=== PATIENT | male | born 1975 | race Caucasian/White ===

== ENCOUNTER 2024-10-12 06:48 | Day surgery (SDC) | payer OTHER, SELFPAY ==
[2024-10-12 07:00] VITALS: BP 130/88; PULSE 59; RESP 16; TEMP 36.2; O2SAT 96
[2024-10-12 07:22] VITALS: BMI 30.9
[2024-10-12] MEDS: sodium chloride 0.9% 1,000 ML 30 ML IV (07:26)
--- NOTE | 2024-10-12 07:32 | P.HPUD_ITS ---
Surgery/Procedure H&P Update DATE OF PROCEDURE: October 12, 2024 DATE H&P PERFORMED: 10/11/24 H&P UPDATE INFORMATION: I have reviewed H&P completed within last 30 days, I have examined patient prior to procedure, No changes to prior documentation and H&P is in [facility] EMR on date indicated PLANNED PROCEDURE: Operation Date: 10/12/24 08:20 Proposed Procedures p Colonoscopy [id number] G0121 Z12.11(Not Applicable) - Elton Day MD
--- NOTE | 2024-10-12 07:32 | W.PM.OPSUD ---
Surgery/Procedure H&P Update DATE OF PROCEDURE: October 12, 2024 DATE H&P PERFORMED: 10/11/24 H&P UPDATE INFORMATION: I have reviewed H&P completed within last 30 days, I have examined patient prior to procedure, No changes to prior documentation and H&P is in [facility] [place] on date indicated PLANNED PROCEDURE: Operation Date: 10/12/24 08:20 Proposed Procedures p Colonoscopy [id number] G0121 Z12.11(Not Applicable) - Elton Day MD
--- NOTE | 2024-10-12 08:02 | ANES.PREANE2 ---
Pre-Anesthetic Assessment Height/Weight: Height 1.73 m Weight 92.079 kg Preop Diagnosis: screening Operation Date: 10/12/24 08:20 Proposed Procedures p Colonoscopy [id number] G0121 Z12.11(Not Applicable) - Elton Day MD Familial anesthetic complications: none Was Beta Sanam taken within 24 hours: N/A Was Clonidine taken within 24 hours: N/A Last intake: Intake Last Liquid Date 10/11/24 Last Liquid Time 21:00 Last Solid Date 10/10/24 Last Solid Time 16:30 Social Alcohol (drinks beer 2-3x weekly ) and No tobacco Exam alert, oriented x 3 and clear to auscultation bilaterally Airway Mallampati: Class II Dentition: full History/ROS No significant history except as noted Pulmonary None reported CV/HEM None reported None reported Hepatic None reported GI None reported Metabolic None reported Musc/skel None reported Neuropsych None reported Anesthetic Plan ASA status: 1 Anesthesia: Anesthesia Evaluation and MAC Medications/Allergies Home Medications ?Medication ?Instructions ?Recorded ?Confirmed ?Last Taken ?Type glucosamine sulf dipot 1 cap PO BID 10/12/24 10/12/24 Unknown History chlr,msm,chond 550 mg-C 30 mg-lea 1 mg capsule (Glucosamine Chondroitin) multivitamin 1 tab PO DAILY 10/12/24 10/12/24 Unknown History Allergies Allergy/AdvReac Type Severity Reaction Status Date / Time No Known Allergies Allergy Verified 10/12/24 07:14 Current Medications Generic Name Dose Route Start Last Admin Trade Name Freq PRN Reason Stop Dose Admin Sodium Chloride 1,000 mls @ 30 mls/hr 10/12/24 07:15 10/12/24 07:26 Sodium Chloride 0.9% IV 30 mls/hr .Q24H AVA Administration PFSH Anesthesia Family History Father Stroke Mother Cancer Social History Smoking and tobacco/nicotine status: never used tobacco/nicotine Data Anesthesia Cardiac Studies: No Data to Display
[2024-10-12 08:54] VITALS: BP 116/76; PULSE 72; RESP 16; TEMP 36.1; O2SAT 95
[2024-10-12 09:09] VITALS: PULSE 67; RESP 111; O2SAT 92
--- NOTE | 2024-10-12 09:45 | ANE.PACU2 ---
Inpatient post-anesthesia follow up: Airway intact: Yes Vital signs: Temperature 97.0 F Pulse Rate 67 Respiratory Rate 111 Blood Pressure 116/76 Pulse Oximetry 92 Oxygen Delivery Me thod Room Air Oxygen Flow Rate 2 Fraction of Inspir ed Oxygen Hydration adequate: Yes Nausea and vomiting: No Pain level: 1 Mental status: Baseline
== END 2024-10-12 09:44 | disposition home or self-care (01) ==
PROVIDERS: PCP Family Medicine; Visit Provider Surgery
PROC: 0DJD8ZZ Inspection of Lower Intestinal Tract, Via Natural or Artificial Opening Endoscopic (ICD-10-PCS; CPT 45378; principal; 2024-10-12 08:20)
DX: Z12.11 Encounter for screening for malignant neoplasm of colon (principal); D12.5 Benign neoplasm of sigmoid colon
CPT/HCPCS: 45385; 88305; J2704; J7030